=== PATIENT | male | born 1995 | race Caucasian/White ===

== ENCOUNTER 2024-05-22 22:40 | Emergency (ER) | payer MEDICAID, SELFPAY ==
[2024-05-22 22:59] VITALS: BP 132/70; PULSE 71; RESP 20; TEMP 36.9; O2SAT 99
[2024-05-23 02:21] VITALS: BP 121/74; PULSE 79; RESP 20; TEMP 36.9; O2SAT 99
[2024-05-23 02:22] VITALS: BP 121/74; PULSE 79; RESP 20; TEMP 36.9
== END 2024-05-23 02:23 | disposition home or self-care (01) ==
PROVIDERS: Emergency Provider Internal Medicine
DX: T76.21XA Adult sexual abuse, suspected, initial encounter (principal)

== ENCOUNTER 2024-11-05 23:01 | Day surgery (SDC) | payer MEDICAID, SELFPAY ==
[2024-11-05 23:11] VITALS: BP 122/78; PULSE 86; RESP 16; TEMP 36.7; O2SAT 98; BMI 36.3
--- NOTE | 2024-11-05 23:21 | ED_ITS ---
HPI - Abdominal Pain General Date Seen: 11/05/24 Chief Complaint: Abdominal Pain Stated Complaint: abdominal pain Time Seen by Provider: 11/05/24 23:21 History of Present Illness HPI narrative: 28-year-old male presenting to the ER today for abdominal pain. Pain and began about 2 or it is afternoon with periumbilical/mid abdominal pain. He has been trying anti acid medications such as Tums, [place] with no relief. He also tried Tylenol but had no relief. He passed a normal BM at 4:00 p.m.. He has not had a fever but did get sweaty temporarily and suspects he had a fever but it got better after he took Tylenol. No nausea, but does have a very poor appetite.. No vomiting. No diarrhea. No rash. No known abdominal injury. He has no previous abdominal surgeries. He is healthy other than HIV. He has been consistent in taking his anti-retro viral medication and recent viral loads have been undetectable. Related Data Home Medications ?Medication ?Instructions ?Recorded ?Confirmed bictegravir 30 mg-emtricitabine 1 tab PO DAILY 05/22/24 11/05/24 120 mg-tenofovir alafenam 15 mg tablet (Biktarvy) Allergies Allergy/AdvReac Type Severity Reaction Status Date / Time No Known Drug Allergies Allergy Verified 05/22/24 23:04 [facility] Medical History (Updated 11/06/24 @ 00:57 by Alfonso Hickey MD) HIV positive ?Z21 - Asymptomatic human immunodeficiency virus [HIV] infection status (ICD- 10) Surgical History No significant past surgical history Social History Smoking Status: Never smoker Second hand tobacco smoke exposure: No How often do you have a drink containing alcohol: never AUDIT-C Alcohol total score: 0 Non-prescribed substance use: denies use Exam Narrative: Exam Narrative: Constitutional: Appears well-developed and well-nourished. Alert. Conversant. Non toxic. HENT: Head: Atraumatic. Nose: Nose normal. Mouth/Throat: Oral mucosa is clear and moist. no trismus. Pharynx normal. Tonsils symmetric. No tonsillar enlargement, erythema, or exudate. Eyes: Conjunctivae normal. EOM normal. Pupils equal, round, and reactive to light. No scleral icterus. Neck: Normal range of motion. Neck supple. No tracheal deviation present. Cardiovascular: Normal rate, regular rhythm. No gallop. No friction rub. No murmur heard. Symmetric radial artery pulses Pulmonary/Chest: Effort normal. No stridor. No respiratory distress. No wheezes. No rales. No rhonchi . No tenderness. Abdominal: Soft. Bowel sounds normal. No distension. No mass. Quite tender, diffusely so but maximally tender on the right side and right lower quadrant. Positive right lower quadrant guarding. No Rovsing sign. Positive psoas sign. No CVA tenderness. Musculoskeletal: RUE: Normal range of motion. No tenderness. No deformity LUE: Normal range of motion. No tenderness. No deformity RLE: Normal range of motion. No edema. No tenderness. No deformity LLE: Normal range of motion. No edema. No tenderness. No deformity Neurological: Alert and oriented to person, place, and time. Normal strength. CN II-VII intact. No sensory deficit. GCS eye subscore is 4. GCS verbal subscore is 5. GCS motor subscore is 6. Normal coordination Skin: Skin is warm and dry. No rash noted. No pallor. Normal capillary refill. Psychiatric: Normal mood. Normal affect. Const: Vital Signs, click to edit/add: Vital Signs - 24 hr 11/05/24 23:11 11/05/24 23:51 11/06/24 00:12 Temperature 98.1 F Pulse Rate [Pulse Oximeter] 86 76 Respiratory Rate 16 16 Blood Pressure [[facility] Upper Arm] 122/78 118/60 Pulse Oximetry 98 96 94 Oxygen Delivery Me thod Room Air Room Air Course Vital Signs Vital signs: Initial Vital Signs Temperature 98.1 F 11/05/24 23:11 Temperature Source Temporal Artery Scan 11/05/24 23:11 Pulse Rate 86 11/05/24 23:11 Respiratory Rate 16 11/05/24 23:11 Blood Pressure 122/78 11/05/24 23:11 Blood Pressure Mean 92 11/05/24 23:11 Blood Pressure Position Sitting 11/05/24 23:11 Pulse Oximetry 98 11/05/24 23:11 Oxygen Delivery Method Room Air 11/05/24 23:11 Vital Signs Temperature 98.1 F 11/05/24 23:11 Pulse Rate 86 11/05/24 23:11 Respiratory Rate 16 11/05/24 23:11 Blood Pressure 122/78 11/05/24 23:11 Pulse Oximetry 98 11/05/24 23:11 Oxygen Delivery Method Room Air 11/05/24 23:11 Temperature 98.1 F 11/05/24 23:11 Pulse Rate 76 11/06/24 00:12 Respiratory Rate 16 11/06/24 00:12 Blood Pressure 118/60 11/06/24 00:12 Pulse Oximetry 94 11/06/24 00:12 Oxygen Delivery Method Room Air 11/06/24 00:12 Medications Administered Medications: Generic Name Dose Route Start Last Admin Trade Name Freq PRN Reason Stop Dose Admin Hydromorphone HCl 0.5 mg 11/05/24 23:39 11/05/24 23:44 Hydromorphone 0.5 Mg/0.5 Ml Inj IVP 0.5 mg Q1H PRN Administration Pain Hydromorphone HCl 0.5 mg 11/06/24 00:35 11/06/24 00:51 Hydromorphone 0.5 Mg/0.5 Ml Inj IVP 0.5 mg Q1H PRN Administration Pain Discontinued Medications Generic Name Dose Route Start Last Admin Trade Name Freq PRN Reason Stop Dose Admin Piperacillin Sod/Tazobactam 100 mls @ 200 mls/hr 11/06/24 00:26 11/06/24 00:56 Sod 4.5 gm/ Sodium Chloride IVPB 11/06/24 00:27 200 mls/hr ONCE ONE Administration Ondansetron HCl 4 mg 11/05/24 23:39 11/05/24 23:44 Ondansetron 2 Mg/Ml Inj IVP 11/05/24 23:40 4 mg ONCE ONE Administration MDM - Abdominal Pain MDM Narrative Medical decision making narrative: The patient presented with right lower quadrant abdominal pain and the Workup, including CT scan, confirms appendicitis. There is no evidence of rupture or abscess at this time. Pain has been controlled with interventions in the Emergency Department. Parenteral antibiotics have been ordered in the Emergency Department. The case was discussed with the origination specialist surgeon, Dr. Zaragoza, and the patient will be going to the operating room in the morning. He will have to board here in the ER for about 6 hours before in go to the OR. I have ordered 1st dose of IV antibiotic-Zosyn. I have ordered maintenance IV fluids an as- needed pain medication. Discussed plan of care the patient who is in agreement. Discussed with my oncoming partner in the ER, Dr. Clark, who will oversee is care here in ER until he can go to the OR.. Lab Data Labs: Lab Results 11/05/24 11/05/24 11/05/24 Range/Units 23:20 23:25 23:30 WBC 11.76 H (4.50-11.00) K/uL RBC 5.09 (4.30-5.90) m/uL Hgb 15.2 (13.5-17.5) gm/dL Hct 44.4 (37.0-53.0) % MCV 87 (80-100) fL MCH 30 (26-34) pg MCHC 34 (32-36) gm/dL RDW Coeff of Joanne 12.2 (11.5-15.5) % Plt Count 194 (140-440) K/uL Neut % (Auto) 80.8 H (42.0-72.0) % Lymph % (Auto) 8.9 L (20-44) % [place] % (Auto) 9.8 (0.0-11.0) % Eos % (Auto) 0.3 (0.0-7.0) % Baso % (Auto) 0.0 (0.0-3.0) % Neut # (Auto) 9.50 H (1.7-7.0) K/uL Lymph # (Auto) 1.00 (0.90-2.90) K/uL [place] # (Auto) 1.20 H (0.00-0.90) K/UL Eos # (Auto) 0.00 (0.00-0.50) K/uL Baso # (Auto) 0.00 (0.00-0.30) K/uL Abs Immat Gran (auto) 0.00 (0.00-0.30) K/uL Imm/Tot Granulo (auto) 0.2 % Sodium 135 (135-149) mmol/L Potassium 3.9 (3.6-5.1) mmol/L Chloride 100 (96-114) mmol/L Carbon Dioxide 25 (20-32) mmol/L Anion Gap 10 (7-15) mEq/L BUN 18 (5-24) mg/dL Creatinine 1.0 (0.5-1.5) mg/dL Estimated Creat Clear 99.24 Estimated GFR 105 ml/min Glucose 130 H (60-115) mg/dL Calcium 9.0 (8.4-10.6) mg/dL Total Bilirubin 1.1 (0.1-1.5) mg/dL Direct Bilirubin 0.3 (0.0-0.5) mg/dL AST 25 (12-35) U/L ALT 37 (4-50) U/L Alkaline Phosphatase 49 (40-150) U/L Total Protein 7.5 (6.0-8.3) g/dL Albumin 4.5 (3.3-5.0) g/dL Lipase 51 (23-300) U/L Urine Color (Yellow) Urine Appearance (Clear) Urine pH (5.0-8.5) Ur Specific [place] (1.000-1.030) Urine Protein (Negative) Urine Glucose (UA) (Negative) Urine Ketones (Negative) Urine Blood (Negative) Urine Nitrite (Negative) Urine Bilirubin (Negative) Urine Urobilinogen (0.2-1.0) Ur Leukocyte Esterase (Negative) Urine RBC (0-2) Urine WBC (0-5) Ur Squamous Epith Cells (None-Few) Urine Bacteria (None) SARS-CoV-2 (PCR) Negative SARS-CoV-2 (Negative) Influenza Type A (PCR) Negative PCR FLU A (Negative) Influenza Type B (PCR) Negative PCR FLU B (Negative) RSV (PCR) Negative PCR RSV (Negative) 11/06/24 Range/Units 00:10 WBC (4.50-11.00) K/uL RBC (4.30-5.90) m/uL Hgb (13.5-17.5) gm/dL Hct (37.0-53.0) % MCV (80-100) fL MCH (26-34) pg MCHC (32-36) gm/dL RDW Coeff of Joanne (11.5-15.5) % Plt Count (140-440) K/uL Neut % (Auto) (42.0-72.0) % Lymph % (Auto) (20-44) % [place] % (Auto) (0.0-11.0) % Eos % (Auto) (0.0-7.0) % Baso % (Auto) (0.0-3.0) % Neut # (Auto) (1.7-7.0) K/uL Lymph # (Auto) (0.90-2.90) K/uL [place] # (Auto) (0.00-0.90) K/UL Eos # (Auto) (0.00-0.50) K/uL Baso # (Auto) (0.00-0.30) K/uL Abs Immat Gran (auto) (0.00-0.30) K/uL Imm/Tot Granulo (auto) % Sodium (135-149) mmol/L Potassium (3.6-5.1) mmol/L Chloride (96-114) mmol/L Carbon Dioxide (20-32) mmol/L Anion Gap (7-15) mEq/L BUN (5-24) mg/dL Creatinine (0.5-1.5) mg/dL Estimated Creat Clear Estimated GFR ml/min Glucose (60-115) mg/dL Calcium (8.4-10.6) mg/dL Total Bilirubin (0.1-1.5) mg/dL Direct Bilirubin (0.0-0.5) mg/dL AST (12-35) U/L ALT (4-50) U/L Alkaline Phosphatase (40-150) U/L Total Protein (6.0-8.3) g/dL Albumin (3.3-5.0) g/dL Lipase (23-300) U/L Urine Color Yellow (Yellow) Urine Appearance Clear (Clear) Urine pH 7.5 (5.0-8.5) Ur Specific [place] 1.020 (1.000-1.030) Urine Protein 1+ A (Negative) Urine Glucose (UA) Negative (Negative) Urine Ketones Negative (Negative) Urine Blood Negative (Negative) Urine Nitrite Negative (Negative) Urine Bilirubin Negative (Negative) Urine Urobilinogen 0.2 (0.2-1.0) Ur Leukocyte Esterase Negative (Negative) Urine RBC 0-2 (0-2) Urine WBC 0-2 (0-5) Ur Squamous Epith Cells Few (None-Few) Urine Bacteria None (None) SARS-CoV-2 (PCR) (Negative) Influenza Type A (PCR) (Negative) Influenza Type B (PCR) (Negative) RSV (PCR) (Negative) Discharge Plan Discharge Clinical Impression: Appendicitis Patient Disposition: XFER to OR Follow Up/Referrals: Provider,Not a Local [Primary Care Provider] -
[2024-11-05 23:30] LABS: Eosinophils Percent Auto 0.3 % (0.0-7.0); Hematocrit 44.4 % (37.0-53.0); Hemoglobin* 15.2 gm/dL (13.5-17.5); Immature Granulocytes Pct Auto 0.2 %; Lymphocytes Percent Auto 8.9 % (20-44); Mean Corpuscular HGB Conc 34 gm/dL (32-36); Mean Corpuscular Hemoglobin 30 pg (26-34); Mean Corpuscular Volume 87 fL (80-100); Monocytes Percent Auto 9.8 % (0.0-11.0); Neutrophils Percent Auto 80.8 % (42.0-72.0); Platelet Count* 194 K/uL (140-440); RDW Coefficient of Variation % 12.2 % (11.5-15.5); Red Blood Count 5.09 m/uL (4.30-5.90); White Blood Count* 11.76 K/uL (4.50-11.00)
[2024-11-05 23:32] LABS: Slide Review Reflex No
--- NOTE | 2024-11-05 23:39 | CRLHL7_ITS ---
For Patients: As a result of the Century Cures Act, medical imaging exams and procedure reports are released immediately into your electronic medical record. You may view this report before your referring provider. If you have questions, please contact your health care provider. INDICATION: Right lower quadrant pain. TECHNIQUE: CT abdomen and pelvis without contrast. COMPARISON: None. FINDINGS: Lower chest: Thin band of atelectasis versus scarring in the right middle lobe. Liver: Right hepatic lobe area of decreased liver attenuation. No suspicious mass. Gallbladder and bile ducts: No stones or inflammation. No biliary dilatation. Pancreas: Unremarkable. No mass or inflammation. Spleen: Normal in size. No masses. Adrenal glands: Normal in size. No nodules. Kidneys: Normal in size. No suspicious masses, stones, or hydronephrosis. GI tract: Mildly thickened appendix up to 8 mm with subtle periappendiceal inflammatory stranding about the distal aspect. No evidence for perforation or abscess formation. No bowel obstruction. Diverticulosis. Vasculature: Abdominal aorta is normal in caliber. Lymph nodes: No lymphadenopathy. Peritoneum/Abdominal Wall: Unremarkable. No free air or significant free fluid. Pelvis: Unremarkable. No pelvic masses. Bones: Unremarkable for age. IMPRESSION: 1. Early acute uncomplicated appendicitis in the right lower quadrant. 2. Hepatic steatosis. Please note that all CT scans at this facility use dose modulation, iterative reconstruction, and/or weight-based dosing when appropriate to reduce radiation dose to as low as reasonably achievable. Dictated by Alfonso Garcia MD @ 11/06/2024 12:16:35 AM (Electronically Signed)
--- OUTSIDE RECORDS SUMMARY | 2024-11-05 23:43 | XMS_ITS | Clinical Summary ---
Author Organization [facility] Address [address] [place] [id number] Care Team Providers Care Medicare Coordinator Name Role Phone Pcp, No Primary Care Provider Unavailabl e Allergies No known active allergies Medications emtricitabine-te nofovir, 200-300 mg, (TRUVADA) tabletIndication s:Encounter for HIV counseling Take 1 tablet by mouth once daily. 90 tablet 1 05/24/2016 Active sertraline (ZOLOFT) 50 mg tabletIndication s:Depression with anxiety Take 1 tablet by mouth once daily. 90 tablet 0 05/24/2016 Active Active Problems Problem Noted Date Diagnosed Date Depression with anxiety 12/07/2015 Immunizations Immunization Administration Dates Next Due Influenza, IIV4 05/24/2016 Family History Medical History Relation Name Comments Good Health Father Diabetes Mother Relation Name Status Comments Brother 1 Alive Brother 2 Alive Father Alive Mother Alive Social History Tobacco Use Types Packs/Day Years Used Date Smoking Tobacco: Never Smokeless Tobacco: Never Tobacco Cessation:Counseling Given: Yes Alcohol Use Standard Drinks/Week Comments Yes 0 (1 standard drink = 0.6 oz pur e alcohol) once a month Sex and Gender Information Value Date Recorded Sex Assigned at Not on file Legal Sex Male 4:59 PM CDT Gender Identity Not on file Sexual Orientation Not on file Obstetrics History Last Filed Vital Signs Vital Sign Reading Time Taken Comments Blood Pressure 115/64 05/24/2016 3:21 PM CDT Pulse 63 05/24/2016 3:21 PM CDT Temperature 37 C (98.6 F) 05/24/2016 3:21 PM CDT Respiratory Rate - - Oxygen Saturation 99% 05/24/2016 3:21 PM CDT Inhaled Oxygen Concentration - - Weight 82.6 kg (182 lb 3.2 oz) 05/24/2016 3:21 P M CDT Height 165.7 cm (5' 5.25) 05/24/2016 3:21 PM CD T Body Mass Index 30.09 05/24/2016 3:21 PM CDT Plan of Treatment Health Maintenance Due Date Last Done Comments Tdap 12/03/2006 Tetanus booster 2015 BMI (ht and wt on same day) for age 18+ 05/24/2017 05/24/2016, 12/13/2015, 12/07/2015 Depression screening for age 12+ 05/24/2017 05/24/2016, 12/13/2015, 12/07/2015 COVID-19 vaccine series (2023- season) 2024 Influenza Vaccine (#1) 2024 05/24/2016 HIV for age 15-65 Completed 05/24/2016, 12/07/2015 Hepatitis C screening for ag e 18-79 Completed 05/24/2016, 12/07/2015 Pneumococcal series for age 6-49 Aged Out No longer eligible b ased on patient's age to complete this topic Procedures Procedure Name Priority Date/Time Associated Diagnosis Comments ANTI HIV 1/2 Routine 05/24/2016 4:07 PM CDT Encounter for HIV counseling ANTI HCV Routine 05/24/2016 4:07 PM CDT Encounter for HIV counseling from Last 3 Months or Most Recently Relevant to Health Maintenance Results * ANTI HCV (05/24/2016 4:07 PM CDT) HEPATITIS C ANTIBODY Non-Reacti ve Non-Reacti ve 05/25/2016 3:59 PM CDT [facility] Blood BLOOD SPECIMEN / Unknown Venipuncture / Unknown 05/24/2016 4:07 PM CDT 05/24/2016 4:07 PM CDT Narrative [facility] - 05/25/2016 3:59 PM CDT Antibodies to HCV not detected; does not exclude the possibility of exposure to HCV. us Reagan Aldridge MD SEND OUTS Final Result [facility] [address] [place] [address], [place] * ANTI HIV 1/2 (05/24/2016 4:07 PM CDT) HIV-1/HIV-2 ANTIBODY Non-Reacti ve Non-Reacti ve 05/25/2016 3:42 PM CDT [facility] Blood BLOOD SPECIMEN / Unknown Venipuncture / Unknown 05/24/2016 4:07 PM CDT 05/24/2016 4:07 PM CDT Narrative [facility] - 05/25/2016 3:42 PM CDT HIV-1 p24 and HIV-1/HIV-2 Ab not detected us Reagan Aldridge MD SEND OUTS Final Result [facility] [address] [place] [address], from Last 3 Months or Most Recently Relevant to Health Maintenance Insurance [employer] Care Teams Medicare Coordinator Relationship Specialty Start Date End Date Pcp, No . PCP - General 11/30/15
[2024-11-05] MEDS: HYDROmorphone 0.5 mg/0.5 ml inj IVP (23:44)
[2024-11-05] MEDS: ONDANSETRON 2 MG/ML inj 4 MG IVP (23:44)
[2024-11-05 23:51] VITALS: O2SAT 96
[2024-11-05 23:56] LABS: Anion Gap 10 mEq/L (7-15); Blood Urea Nitrogen* 18 mg/dL (5-24); Carbon Dioxide* 25 mmol/L (20-32); Chloride* 100 mmol/L (96-114); Est. Creatinine Clearance* 99.24; Estimated Glomerular Filt Rate 105 ml/min; Glucose* 130 mg/dL (60-115); Potassium* 3.9 mmol/L (3.6-5.1); Sodium* 135 mmol/L (135-149)
[2024-11-05 23:57] LABS: Alanine Aminotransferase* 37 U/L (4-50); Albumin* 4.5 g/dL (3.3-5.0); Alkaline Phosphatase* 49 U/L (40-150); Aspartate Amino Transferase* 25 U/L (12-35); Bilirubin Direct* 0.3 mg/dL (0.0-0.5); Bilirubin Total* 1.1 mg/dL (0.1-1.5); Lipase* 51 U/L (23-300); Total Protein* 7.5 g/dL (6.0-8.3)
[2024-11-06] VITALS (21 sets, daily range): BP systolic 97–134; BP diastolic 50–73; PULSE 65–88; RESP 12–16; TEMP 36.3–37.1; O2SAT 93–98
[2024-11-06 00:08] LABS: PCR FLU A Negative PCR FLU A (Negative); PCR FLU B Negative PCR FLU B (Negative); PCR RSV Negative PCR RSV (Negative); SARS PCR* Negative SARS-CoV-2 (Negative)
[2024-11-06 00:17] LABS: Appearance Urine Clear (Clear); Bilirubin Urine Negative (Negative); Blood Urine Negative (Negative); Color Urine Yellow (Yellow); Glucose Urine Negative (Negative); Ketones Urine Negative (Negative); Leukocyte Esterase Urine Negative (Negative); Nitrite Urine Negative (Negative); Protein Urine 1+ (Negative); Urobilinogen Urine 0.2 (0.2-1.0); pH Urine 7.5 (5.0-8.5)
[2024-11-06 00:27] LABS: RBC Urine 0-2 (0-2); Squamous Epithelial Cell Urine Few (None-Few); WBC Urine 0-2 (0-5)
[2024-11-06] MEDS: HYDROmorphone 0.5 mg/0.5 ml inj IVP (00:51)
[2024-11-06] MEDS: PIPERACILLIN/TAZOBACTAM 4.5 GM in 0.9 % SODIUM CHLORIDE Mini-bag 100 ML IVPB (00:56)
[2024-11-06] MEDS: LACTATED RINGERS 500 ML 500 ML 125 ML IV ×2 (01:34→05:51)
--- NOTE | 2024-11-06 07:02 | P.GSHP_ITS ---
History of Present Illness History of Present Illness Date Seen: 11/06/24 Chief complaint: abdominal pain Narrative: Nolberto Allan is a 28 year old male Who presented to the emergency department overnight with right lower quadrant pain. He states that yesterday afternoon he developed pain in his middle abdomen. This migrated to his right lower quadrant by the time he presented to the emergency department. He has never had pain like this before. Pain medicine helps relieve his pain. Movement makes his pain worse. No change in bowel habits and no urinary symptoms. [facility] Medical History (Updated 11/06/24 @ 00:57 by Alfonso Hickey MD) HIV positive ?Z21 - Asymptomatic human immunodeficiency virus [HIV] infection status (ICD- 10) Surgical History No significant past surgical history Social History Narrative: Minimal alcohol use. The patient is a student at [employer]. He is a [place] major. Smoking Status: Never smoker Second hand tobacco smoke exposure: No How often do you have a drink containing alcohol: never AUDIT-C Alcohol total score: 0 Non-prescribed substance use: denies use Meds Home Medications and Allergies Home Medications ?Medication ?Instructions ?Recorded ?Confirmed ?Type bictegravir 30 mg-emtricitabine 1 tab PO DAILY 05/22/24 11/05/24 History 120 mg-tenofovir alafenam 15 mg tablet (Biktarvy) Allergies Allergy/AdvReac Type Severity Reaction Status Date / Time No Known Drug Allergies Allergy Verified 05/22/24 23:04 Exam Narrative: Exam Narrative: General appearance: Alert, cooperative, and in no distress Eyes: PERRLA, eye lids clear, and sclera white HENT Head: Normocephalic Ears: External ears normal Pulmonary: Clear to auscultation bilaterally Cardiovascular Heart: Regular rate and rhythm Extremities: warm and well perfused Gastrointestinal Abdominal: No scars. Tender with rebound in the right lower quadrant. Musculoskeletal: Extremities: Upper: Both upper extremities have normal joint range of motion and intact strength. Lower: Both lower extremities have normal joint range of motion and intact strength. Skin: Normal skin color, texture, and turgor. Neurologic: No focal deficits Psychiatric: Alert, oriented, cooperative, normal affect. Const: Vital Signs, click to edit/add: Vital Signs - 24 hr 11/05/24 23:11 11/05/24 23:51 11/06/24 00:12 Temperature 98.1 F Pulse Rate Pulse Rate [Pulse Oximeter] 86 76 Respiratory Rate 16 16 Blood Pressure Blood Pressure [Ri ght Upper Arm] 122/78 118/60 Pulse Oximetry 98 96 94 Oxygen Delivery Me thod Room Air Room Air 11/06/24 01:45 11/06/24 02:00 11/06/24 02:02 Temperature Pulse Rate 71 78 88 Pulse Rate [Pulse Oximeter] Respiratory Rate 16 Blood Pressure 116/73 Blood Pressure [Ri ght Upper Arm] Pulse Oximetry 96 96 96 Oxygen Delivery Me thod 11/06/24 03:01 11/06/24 04:02 11/06/24 04:09 Temperature Pulse Rate 75 73 88 Pulse Rate [Pulse Oximeter] Respiratory Rate 16 Blood Pressure 113/50 L 115/56 L Blood Pressure [Ri ght Upper Arm] Pulse Oximetry 98 98 97 Oxygen Delivery Me thod 11/06/24 05:00 11/06/24 05:01 11/06/24 06:02 Temperature Pulse Rate 71 65 70 Pulse Rate [Pulse Oximeter] Respiratory Rate 16 16 Blood Pressure 98/50 L 97/56 L Blood Pressure [Ri ght Upper Arm] Pulse Oximetry 94 95 94 Oxygen Delivery Me thod Results Results Labs: WBC 11.6 LFTs and electrolytes within normal limits. Abdomen CT scan report/results: report reviewed and image reviewed Additional studies: CT Abdomen/Pelvis 11/06/22 INDICATION: Right lower quadrant pain. TECHNIQUE: CT abdomen and pelvis without contrast. COMPARISON: None. FINDINGS: Lower chest: Thin band of atelectasis versus scarring in the right middle lobe. Liver: Right hepatic lobe area of decreased liver attenuation. No suspicious mass. Gallbladder and bile ducts: No stones or inflammation. No biliary dilatation. Pancreas: Unremarkable. No mass or inflammation. Spleen: Normal in size. No masses. Adrenal glands: Normal in size. No nodules. Kidneys: Normal in size. No suspicious masses, stones, or hydronephrosis. GI tract: Mildly thickened appendix up to 8 mm with subtle periappendiceal inflammatory stranding about the distal aspect. No evidence for perforation or abscess formation. No bowel obstruction. Diverticulosis. Vasculature: Abdominal aorta is normal in caliber. Lymph nodes: No lymphadenopathy. Peritoneum/Abdominal Wall: Unremarkable. No free air or significant free fluid. Pelvis: Unremarkable. No pelvic masses. Bones: Unremarkable for age. IMPRESSION: 1. Early acute uncomplicated appendicitis in the right lower quadrant. 2. Hepatic steatosis. Please note that all CT scans at this facility use dose modulation, iterative reconstruction, and/or weight-based dosing when appropriate to reduce radiation dose to as low as reasonably achievable. Dictated by Alfonso Garcia MD @ 11/06/2024 12:16:35 AM Progress Note:A&P Assessment and plan (1) Appendicitis: Status: Acute Plan The patient is a 28-year-old male with acute appendicitis. We discussed that appendectomy is the preferred treatment for this. This can most often be done laparoscopically. We discussed risks and benefits of the procedure including but not limited to bleeding, need for conversion to open, risk of injury to other structures, need for possible bowel resection, and abscess formation. The patient understands that the risk of abscess is higher if the appendix is perforated. For that reason, we generally keep patient is in the hospital on IV antibiotics until vital signs and white blood cell count had normalized. We also discussed recovery including 2 weeks of lifting restrictions. He is agreeable to proceed and signed informed consent. We will plan on surgery urgently this morning.
--- NOTE | 2024-11-06 07:09 | PM.GSPRC ---
Operative Note Date of procedure: 11/06/24 Pre-op diagnosis: Acute appendicitis Post-op diagnosis: Same Type of Procedure: Laparoscopic appendectomy Indications: The patient is a 28-year-old male presented to the emergency department with right lower quadrant pain. Workup revealed appendicitis without evidence of perforation. I recommended appendectomy and he agreed to proceed after discussion of risks and benefits. Procedure Description: After discussing the risks and benefits of the procedure, the patient signed informed consent.? The operative site was marked and the patient was brought to the operating room and placed on the operating table in supine position.? Care was taken to pad the patient's pressure points.?? The patient was then intubated by anesthesia.?? The operative site was then prepped and draped in the usual sterile fashion.? A time-out was then performed. Entrance to the abdomen was obtained via a 5 mm optical trocar in the left upper quadrant. The abdomen was insufflated and briefly surveyed for any signs of injury. There were none. A 12 mm port was placed inferior to the umbilicus as well as a 5 mm port in the left lower quadrant. Both were done under direct vision. The patient was then placed in Trendelenburg position with the right side up. The small bowel was gently moved out of the way and the appendix was in view. It was inflamed with a small amount of fibrinous exudate noted at the tip, however no perforation was noted. The appendix was grasped and pulled into view. A mesenteric window was created between the base of the appendix and the mesoappendix. An Endo-HANNY purple load stapler was then used to transect the appendix at its base. A vascular load stapler was then used to divide the mesoappendix. The staple lines were inspected for bleeding. There was none. The appendix was then removed from the abdomen using an Endo-Catch bag. The specimen was sent to pathology. The ports were removed and the abdomen desufflated. The 12 mm port site fascia was closed with 0 Vicryl. The skin was then closed with absorbable subcuticular suture. Sterile dressings were then applied. Instrument sponge and needle counts were correct at the end of the case. The patient was then woken and transported to the PACU in stable condition. The patient tolerated the procedure well. Findings: Acute, non perforated appendicitis Anesthesia: GETA Surgeon: Kadie Zaragoza MD Estimated blood loss (mL): 5 Specimen: Appendix Condition: stable Disposition: PACU
[2024-11-06] MEDS: PIPERACILLIN/TAZOBACTAM 3.375 GM INJ IVPB (07:15)
[2024-11-06] MEDS: LACTATED RINGERS 1000 ML 1,000 ML 100 ML IV (07:30)
[2024-11-06] MEDS: BUPIVACAINE 0.25% 30 ML INJECTION (07:35)
--- NOTE | 2024-11-06 07:55 | P.ANES_ITS ---
Anesthesia Charges Start Date/Time Anesthesia Start Date: 11/06/24 Anesthesia Start Time: 07:06 Stop Date/Time Anesthesia Stop Date: 11/06/24 Anesthesia Stop Time: 07:53 Summary Emergency: INCINERATOR OPERATOR Coding CPT Codes CPT Codes: ANESTH SURG LOWER ABDOMEN - 44893 ([id number]) P2 - PATIENT W/MILD SYST DISEASE, QK - EMR ANALYST 2-4 CNCRNT ANES PROC, QX - INCINERATOR OPERATOR SVC W/ MD MED DIRECTION Additional Codes: Summary - Emergency: INCINERATOR OPERATOR ([id number])
--- NOTE | 2024-11-06 07:55 | P.ANES_ITS ---
Anesthesia Charges Start Date/Time Anesthesia Start Date: 11/06/24 Anesthesia Start Time: 07:06 Stop Date/Time Anesthesia Stop Date: 11/06/24 Anesthesia Stop Time: 07:53 Summary Emergency: NIALL Coding CPT Codes CPT Codes: ANESTH SURG LOWER ABDOMEN - 25156 ([id number]) P2 - PATIENT W/MILD SYST DISEASE, QK - TRANSIT SPECIALIST 2-4 CNCRNT ANES PROC, QX - BROOM STITCHER SVC W/ MD MED DIRECTION Additional Codes: Summary - Emergency: NIALL ([id number])
--- NOTE | 2024-11-06 07:55 | W.ANESCHARGE ---
Anesthesia Charges Start Date/Time Anesthesia Start Date: 11/06/24 Anesthesia Start Time: 07:06 Stop Date/Time Anesthesia Stop Date: 11/06/24 Anesthesia Stop Time: 07:53 Summary Emergency: CONCRETE MIXER OPERATOR HELPER Coding CPT Codes CPT Codes: ANESTH SURG LOWER ABDOMEN - 19065 ([id number]) P2 - PATIENT W/MILD SYST DISEASE, QK - MINIATURE SET DESIGNER 2-4 CNCRNT ANES PROC, QX - CONCRETE MIXER OPERATOR HELPER SVC W/ MD MED DIRECTION Additional Codes: Summary - Emergency: CONCRETE MIXER OPERATOR HELPER ([id number])
--- NOTE | 2024-11-06 07:55 | W.ANESCHARGE ---
Anesthesia Charges Start Date/Time Anesthesia Start Date: 11/06/24 Anesthesia Start Time: 07:06 Stop Date/Time Anesthesia Stop Date: 11/06/24 Anesthesia Stop Time: 07:53 Summary Emergency: NIALL Coding CPT Codes CPT Codes: ANESTH SURG LOWER ABDOMEN - 16950 ([id number]) P2 - PATIENT W/MILD SYST DISEASE, QK - PLATE PRINTER 2-4 CNCRNT ANES PROC, QX - BUSINESS ENTERPRISE OFFICER SVC W/ MD MED DIRECTION Additional Codes: Summary - Emergency: NIALL ([id number])
[2024-11-06] MEDS: HYDROCODONE-ACETAMIN 5-325 MG 1 TAB PO (09:15)
--- NOTE | 2024-11-06 10:09 | SUR.PHASEII ---
Left hand IV discontinued. Catheter intact. Dressing applied.
== END 2024-11-06 10:05 | disposition home or self-care (01) ==
LOC: ED 11-06 06:30 → OR 11-06 06:36
PROVIDERS: Emergency Provider Emergency Medicine; Visit Provider Surgery
PROC: 0DTJ4ZZ Resection of Appendix, Percutaneous Endoscopic Approach (ICD-10-PCS; CPT 44970; principal; 2024-11-06 07:00)
DX: K35.80 Unspecified acute appendicitis (principal); Z21 Asymptomatic human immunodeficiency virus [HIV] infection status
CPT/HCPCS: 44970; 00840; 36415; 74176; 80048; 80076; 81001; 81003; 83690; 85025; 87631; 88304; 94761; 99140; 99283; 99284; 99285; A9270; J0330; J0665; J1100; J1171; J1885; J2250; J2371; J2405; J2543; J2704; J3010; J3490; J7120